=== PATIENT | male | born 1970 | race Caucasian/White ===

== ENCOUNTER 2017-06-03 09:18 | Inpatient (IN) | payer BC ==
[2017-06-03] MEDS ORDERED: NS 1000 ML 1,000 ML IV ONE (09:35)
--- NOTE | 2017-06-03 09:35 | DR.GENAD ---
HPI - PCP Primary Care Physician: heena - HPI Comment HPI Comment: PAIN STARTED AT 22:00PM LAST NIGHT. PATIENT HAVE NOT BEING TO KEEP FLUID DOWN SINCE. LOW GRADE FEVER IN ED. HAD BP YESTERDAY. SIMILAR ILLNESS LAST YEAR WAS DUE TO PANCREATITIS AND BANORMAL LFTS. - Complaint/Symptoms Chief Complaint Doctors Comments: ABDOMINAL PAIN WITH NAUSEA AND VOMITING TIMES SEVERAL HOURS. Chief Complaint:: pt stated he started having abd pain with nausea and vomiting. hx of pancreatitis - Nurses notes reviewed Nurses Notes Review: Yes - Source History Provided: Patient - Mode of Arrival Mode of Arrival: Ambulatory - Timing Onset of Chief Complaint: 06/02/17 Came on: Suddenly - Duration Duration: Constant Duration: Days - Severity Severity: Moderate PMH - PMH Past Medical History: Yes Past Medical History: Diabetes, Dyslipidemia, Hypertension Past Surgical History: Yes Surgical History: Cholecystectomy, Tonsillectomy - Family History History of Family Medical Conditions: Yes Family Medical History: Diabetes Mellitus, Cancer, [place], Coronary Artery Disease, Hypertension - Social History Does patient currently use any type of tobacco product: No Have you used tobacco products in the last 12 months: No Type of Tobacco Use: None Does any household member use tobacco: No Alcohol Use: None Do you use any recreational Drugs:: No Lives With: Family Lives Where: Home - infectious screening In the last 2 months have you had wt loss of >10#?: NO Have you had fever, night sweats or hemotysis?: No Have you traveled outside the country in the last 6 months?: No Isolation: Standard ROS - Review of Systems Constitutional: Fever, Weakness, Fatigue Eyes: No Symptoms Reported. negative: Eye Pain, Discharge ENTM: No Symptoms Reported Respiratoy: No Symptoms Reported Cardiovascular: No Symptoms Reported Gastrointestinal/Abdominal: Abdominal Pain, Nausea, Vomiting Genitourinary: No Symptoms Reported. negative: Dysuria, Frequency, Hematuria Neurological: No Symptoms Reported Musculoskeletal: No Symptoms Reported Integumentary: No Symptoms Reported Hematologic/Lymphatic: No Symptoms Reported Endocrine: No Symptoms Reported All Other Systems: Reviewed and Negative PE - Vital Signs Vitals: Temperature 99.9 F Pulse Rate 115 Respiratory Rate 18 Blood Pressure [Right Arm] 129/83 Blood Pressure [Left Arm] 123/76 Blood Pressure 127/85 O2 Sat by Pulse Oximetry 99 - General Limitations: No Limitations General Appearance: Alert - Head Head Exam: Normal Inspection - Eyes Eye exam: Normal Appearance - ENT ENT Exam: Normal External Ear Exam TM/Canal Exam: Bilateral Normal Nose Exam: Normal Nose Exam Mouth Exam: Normal Inspection Throat Exam: Normal Inspection - Neck Neck Exam: Normal Inspection - Chest Chest Inspection: Symmetric Chest Wall Rise - Respiratory Respiratory Exam: Normal Lung Sounds Bilat Respiratory Exam: Bilateral Rhonchi, Lower Rhonchi - Cardiovascular Cardiovascular Exam: Regular Rate, Tachycardia - Abdominal Exam Abdominal Exam: Normal Bowel Sounds, Soft, Tenderness Abdominal Tenderness: Diffuse, Moderate - Extremities Extremities Exam: Normal Inspection - Back Back Exam: Normal Inspection - Neurologic Neurological Exam: Alert, Oriented X3 - Psychiatric Psychiatric Exam: Normal Affect, Normal Mood - Skin Skin Exam: Normal Color [facility] - Additional Information Additional Information Obtained From: Family - Differential Diagnosis Differential Diagnosis: ABDOMINAL PAIN, N/V, ELEVATED GLUCOSE Course - Treatment Treatment: SEE ORDERS - Education/Counseling Education/Counseling: Patient, Family, Education Educated On: Diagnosis ROR - Labs Reviewed Laboratory Results Reviewed?: Yes Result Diagrams: 06/04/17 05:35 06/04/17 05:35 Laboratory: WBC 4.8 X10^3/uL (3.6-10.0) 06/03/17 09:31 RBC 5.26 X10^6/uL (4.7-6.0) 06/03/17 09:31 Hgb 14.4 g/dL (13.5-18.0) 06/03/17 09:31 Hct 42.5 % (42.0-54.0) 06/03/17 09:31 MCV 80.8 fL (80.0-100.0) 06/03/17 09:31 MCH 27.4 pg (27.0-34.0) 06/03/17 09:31 MCHC 33.9 g/dL (33.0-35.0) 06/03/17 09:31 RDW 14.8 % (11.6-16.5) 06/03/17 09:31 Plt Count 226 X10^3/uL (150.0-450.0) 06/03/17 09:31 MPV 8.8 fL (7.4-11.0) 06/03/17 09:31 Neut % 78.7 % (42.0-75.0) H 06/03/17 09:31 Lymph % 12.2 % (21.0-51.0) L 06/03/17 09:31 Carbon % 7.8 % (0.0-13.0) 06/03/17 09:31 Eos % 0.5 % (0.9-2.9) L 06/03/17 09:31 Baso % 0.8 % (0.2-1.0) 06/03/17 09:31 Neut # 3.8 x10^3/uL (2.2-4.8) 06/03/17 09:31 Lymph # 0.6 X10^3/uL (1.3-2.9) L 06/03/17 09:31 Carbon # 0.4 x10^3/uL (0.3-0.8) 06/03/17 09:31 Eos # 0.0 x10^3/uL (0.0-0.2) 06/03/17 09:31 Baso # 0.0 X10^3/uL (0.0-0.1) 06/03/17 09:31 Absolute Nucleated RBC 0.0 /100WBC 06/03/17 09:31 Sodium 138 mmol/L (136-145) 06/03/17 09:31 Corrected Sodium 142 mmol/L (136-145) 06/03/17 09:31 Potassium 4.2 mmol/L (3.5-5.1) 06/03/17 09:31 Chloride 99 mmol/L (98-107) 06/03/17 09:31 Carbon Dioxide 28.3 mmol/L (21-32) 06/03/17 09:31 BUN 18 mg/dL (7-18) 06/03/17 09:31 Creatinine 1.34 mg/dL (0.70-1.30) H 06/03/17 09:31 Est GFR (MDRD) Af Amer > 60 (>60) 06/03/17 09:31 Est GFR (MDRD) Non-Af > 60 (>60) 06/03/17 09:31 Glucose 286 mg/dL (65-99) H 06/03/17 09:31 Calcium 9.1 mg/dL (8.5-10.1) 06/03/17 09:31 Corrected Calcium TNP 06/03/17 09:31 Total Bilirubin 2.20 mg/dL (0.2-1.0) H 06/03/17 09:31 AST 2162 Units/L (15-37) H 06/03/17 09:31 ALT 2699 Units/L (12-78) H 06/03/17 09:31 Alkaline Phosphatase 203 Units/L (46-116) H 06/03/17 09:31 Creatine Kinase 51 Units/L (39-308) 06/03/17 09:31 CK-MB (CK-2) 1.0 ng/mL (0-4.0) 06/03/17 09: CK/CKMB % Calc 2.0 % (<4) 06/03/17 09: Troponin I < 0.02 ng/mL (0-1.5) 06/03/17 09:31 Total Protein 7.5 g/dL (6.4-8.2) 06/03/17 09:31 Albumin 3.9 g/dL (3.4-5.0) 06/03/17 09: Globulin 3.6 g/dL (2.5-4.5) 06/03/17 09:31 Albumin/Globulin Ratio 1.1 Ratio (1.1-2.1) 06/03/17 09:31 Amylase 14 Units/L (25-115) L 06/03/17 09:31 Lipase 155 Units/L (73-393) 06/03/17 09:31 Specimen Type Clean catch urine 06/03/17 09:40 Urine Color Yellow (YELLOW) 06/03/17 09:40 Urine Appearance Clear (CLEAR) 06/03/17 09:40 Urine pH 7.0 (5.0 - 8.0) 06/03/17 09:40 Ur Specific [place] 1.005 (1.000-1.030) 06/03/17 09:40 Urine Protein 1+ (NEGATIVE) 06/03/17 09:40 Urine Glucose (UA) 4+ (NEGATIVE) 06/03/17 09:40 Urine Ketones Negative (NEGATIVE) 06/03/17 09:40 Urine Occult Blood 1+ (NEGATIVE) 06/03/17 09:40 Urine Nitrite Negative (NEGATIVE) 06/03/17 09:40 Urine Bilirubin Negative (NEGATIVE) 06/03/17 09:40 Urine Urobilinogen 1+ (NORMAL) 06/03/17 09:40 Ur Leukocyte Esterase Negative (NEGATIVE) 06/03/17 09:40 Urine RBC 0-3 /HPF (NEGATIVE) 06/03/17 09:40 Urine WBC 0-1 /HPF (NEGATIVE) 06/03/17 09:40 Ur Squamous Epith Cells Negative /HPF (NEGATIVE) 06/03/17 09:40 Urine Bacteria Negative /HPF (NEGATIVE) 06/03/17 09:40 Ur Culture Indicated? No/not indicated 06/03/17 09:40 Acetone, Semi-Quant Neg (NEGATIVE) 06/03/17 09:31 - XRAY XRAY Interpreted by: Radiologist XRAY Findings: REPORT DISCUSS WITH PATIENT AND FAMILY. - EKG Rhythm: NSR (EKG NOTED) - Diagnosis Discharge Problem: Abdominal pain in male, Hyperglycemia, Partial small bowel obstruction Nausea & vomiting Qualifiers: Vomiting type: bilious vomiting Qualified Code(s): R11.14 - Bilious vomiting - Discharge Plan Disposition: ADMITTED INPATIENT Condition: Stable - Follow ups/Referrals - Instructions
[2017-06-03] MEDS ORDERED: NS 1000 ML 1,000 ML ONE ×2 (09:39→12:31)
[2017-06-03 09:46] LABS: BASOPHILS % (AUTO) 0.8 % (0.2-1.0); EOSINOPHILS % (AUTO) 0.5 % (0.9-2.9); HEMATOCRIT 42.5 % (42.0-54.0); HEMOGLOBIN 14.4 g/dL (13.5-18.0); LYMPHOCYTES # (AUTO) 0.6 X10^3/uL (1.3-2.9); LYMPHOCYTES % (AUTO) 12.2 % (21.0-51.0); MEAN CORPUSCULAR HEMOGLOBIN 27.4 pg (27.0-34.0); MEAN CORPUSCULAR HGB CONC 33.9 g/dL (33.0-35.0); MEAN CORPUSCULAR VOLUME 80.8 fL (80.0-100.0); MEAN PLATELET VOLUME 8.8 fL (7.4-11.0); MONOCYTES # (AUTO) 0.4 x10^3/uL (0.3-0.8); MONOCYTES % (AUTO) 7.8 % (0.0-13.0); NEUTROPHILS # (AUTO) 3.8 x10^3/uL (2.2-4.8); NEUTROPHILS % (AUTO) 78.7 % (42.0-75.0); PLATELET COUNT 226 X10^3/uL (150.0-450.0); RED BLOOD COUNT 5.26 X10^6/uL (4.7-6.0); RED CELL DISTRIBUTION WIDTH 14.8 % (11.6-16.5); WHITE BLOOD COUNT 4.8 X10^3/uL (3.6-10.0)
[2017-06-03] MEDS ORDERED: PEPCID 20 MG IV PREMIX* 20 MG/50 ML BAG IV ONE ×2 (09:49→09:50)
--- NOTE | 2017-06-03 09:59 | RAD ---
Examination: Portable AP chest History: Fever, abdominal pain Comparison reference 08/21/2016 Findings: Continued normal heart size with clear lungs and pleural spaces. Impression: No change; no acute disease Reported By:
[2017-06-03 10:00] LABS: ALBUMIN 3.9 g/dL (3.4-5.0); ALKALINE PHOSPHATASE 203 Units/L (46-116); AMYLASE 14 Units/L (25-115); BLOOD UREA NITROGEN 18 mg/dL (7-18); CALCIUM 9.1 mg/dL (8.5-10.1); CARBON DIOXIDE 28.3 mmol/L (21-32); CHLORIDE 99 mmol/L (98-107); COR NA(FOR HYPERGLY) 142 mmol/L (136-145); CREATININE 1.34 mg/dL (0.70-1.30); LIPASE 155 Units/L (73-393); SODIUM 138 mmol/L (136-145); TOTAL PROTEIN 7.5 g/dL (6.4-8.2); eGFR BLACK RACES > 60 (>60); eGFR NON BLACK RACES > 60 (>60)
[2017-06-03 10:01] LABS: BILIRUBIN,URINE NEGATIVE (NEGATIVE); BLOOD/HEMOGLOBIN,URINE 1+ (NEGATIVE); GLUCOSE, URINE 4+ (NEGATIVE); KETONES,URINE NEGATIVE (NEGATIVE); LEUKOCYTE ESTERASE ,URINE NEGATIVE (NEGATIVE); NITRITES,URINE NEGATIVE (NEGATIVE); PROTEIN,URINE 1+ (NEGATIVE); UROBILINOGEN,URINE 1+ (NORMAL)
[2017-06-03 10:06] LABS: SERUM ACETONE NEG (NEGATIVE)
[2017-06-03 10:09] LABS: CREATINE KINASE 51 Units/L (39-308); TROPONIN I < 0.02 ng/mL (0-1.5)
[2017-06-03 10:13] LABS: COLOR,URINE YELLOW (YELLOW)
[2017-06-03 10:14] LABS: APPEARANCE,URINE CLEAR (CLEAR); BACTERIA,URINE NEGATIVE /HPF (NEGATIVE); RBC,URINE 0-3 /HPF (NEGATIVE); SQUAMOUS EPITHELIAL CELL,UR NEGATIVE /HPF (NEGATIVE)
[2017-06-03 10:14] LABS: ALANINE AMINOTRANSFERASE 2699 Units/L (12-78); ASPARTATE AMINO TRANSFERASE 2162 Units/L (15-37)
--- NOTE | 2017-06-03 11:02 | CT ---
HISTORY: Abdominal pain, nausea, vomiting, diarrhea Study: CT abdomen pelvis without contrast Comparison: None Technique: Axial noncontrast images with coronal and sagittal reformats. Dose reduction procedures we re used with mA/kv adjusted for body size. The examination is limited due to the lack of oral and IV contrast. Findings: Examination of the lung bases demonstrate bilateral patchy infiltrates of a minimal degree, however, the infiltrates on the left have a nodular appearance measuring 8.3 and 11.6 mm. Follow-up of these a reas until complete resolution is recommended. Follow-up in 3-6 months is recommended to assess for c hange. Clinical correlation as to the presence or absence of parameters of infection is recommended. The liver, spleen, adrenal glands, pancreas are within normal limits to the limitations of an unenhan hank examination. The patient is status post cholecystectomy. The kidneys are unobstructed and without stones. No ureteral calculi are identified. The stomach is distended with fluid. Partial gastric out let obstruction could not be entirely excluded. There are no findings suggestive of diverticulitis or colitis. No enlarged intraperitoneal or retroperitoneal lymphadenopathy is identified. The appendix is not identified with absolute certainty. There are no secondary signs of appendicitis present. Exam ination of the pelvis demonstrated no evidence for pelvic masses, pelvic fluid, or pelvic lymphadenop athy. No bladder abnormality is identified. No lytic or blastic skeletal lesions are identified. IMPRESSION: Limited examination due to the lack of intravenous and oral contrast Stomach is moderately distended with fluid. This could be recently ingested contents however a partia l small bowel obstruction should be clinically excluded. Subtle soft peribronchial bibasilar lung infiltrates nodular on the left which should be followed car efully with CT Reported By:
[2017-06-03] MEDS ORDERED: ZOFRAN INJ 4 MG VIAL ONE (12:30)
[2017-06-03] MEDS ORDERED: DEMEROL INJ ONE (12:31)
[2017-06-03] MEDS ORDERED: DEMEROL INJ IVP ONE (12:38)
[2017-06-03] MEDS ORDERED: ZOFRAN INJ 4 MG VIAL IVP ONE (12:38)
[2017-06-03] MEDS: NS 1000 ML 1,000 ML IV SCH (13:05)
[2017-06-03 13:46] VITALS: BMI 26.2
[2017-06-03] MEDS: DILAUDID INJ IVP PRN ×2 (15:59→21:19)
[2017-06-03 16:28] LABS: CKMB % 1.9 % (<4); CREATINE KINASE 53 Units/L (39-308); TROPONIN I < 0.02 ng/mL (0-1.5)
[2017-06-03] MEDS: ZOFRAN INJ 4 MG VIAL IVP PRN (16:51)
[2017-06-03] MEDS: PHENERGAN INJ 25 MG IV PRN (21:18)
--- NOTE | 2017-06-03 21:33 | US ---
Limited abdominal ultrasound: Indication: Abdominal pain. Comparison: Abdomen and pelvis CT dated June 03, 2017. Technique: Multiple transverse and longitudinal real-time sonographic images with Doppler interrogati on of the liver and biliary tree were obtained. Findings: The imaged pancreas is normal, although the tail is obscured by bowel gas. The liver demons trates normal size, morphology, and echogenicity. No focal hepatic lesions are identified. Normal hep atopetal flow noted within the portal vein. Right kidney is unremarkable. Gallbladder is not present, consistent with cholecystectomy. There is no biliary dilation. Measurements: 1. Liver: 15.0 cm 2. Common duct: 4 mm 3. Right kidney: 12.8 cm Impression: Negative abdominal ultrasound status post cholecystectomy. Reported By:
[2017-06-03 23:27] LABS: CKMB % 2.1 % (<4); CREATINE KINASE 57 Units/L (39-308); CREATINE KINASE MB 1.2 ng/mL (0-4.0); TROPONIN I < 0.02 ng/mL (0-1.5)
[2017-06-04] MEDS: NS 1000 ML 1,000 ML IV SCH ×2 (04:00→18:37)
[2017-06-04] MEDS: PHENERGAN INJ 25 MG IV PRN ×2 (04:14→17:47)
[2017-06-04] MEDS: DILAUDID INJ IVP PRN ×3 (04:14→22:00)
[2017-06-04 06:15] LABS: BASOPHILS # (AUTO) 0.1 X10^3/uL (0.0-0.1); BASOPHILS % (AUTO) 0.8 % (0.2-1.0); EOSINOPHILS # (AUTO) 0.1 x10^3/uL (0.0-0.2); EOSINOPHILS % (AUTO) 1.3 % (0.9-2.9); HEMATOCRIT 40.9 % (42.0-54.0); HEMOGLOBIN 13.6 g/dL (13.5-18.0); LYMPHOCYTES % (AUTO) 13.4 % (21.0-51.0); MEAN CORPUSCULAR HEMOGLOBIN 27.5 pg (27.0-34.0); MEAN CORPUSCULAR HGB CONC 33.4 g/dL (33.0-35.0); MEAN CORPUSCULAR VOLUME 82.3 fL (80.0-100.0); MONOCYTES # (AUTO) 0.7 x10^3/uL (0.3-0.8); NEUTROPHILS # (AUTO) 5.7 x10^3/uL (2.2-4.8); NEUTROPHILS % (AUTO) 75.5 % (42.0-75.0); PLATELET COUNT 207 X10^3/uL (150.0-450.0); RED BLOOD COUNT 4.96 X10^6/uL (4.7-6.0); RED CELL DISTRIBUTION WIDTH 15.3 % (11.6-16.5); WHITE BLOOD COUNT 7.5 X10^3/uL (3.6-10.0)
[2017-06-04 07:03] LABS: ALBUMIN 3.6 g/dL (3.4-5.0); ALKALINE PHOSPHATASE 242 Units/L (46-116); ASPARTATE AMINO TRANSFERASE 652 Units/L (15-37); BLOOD UREA NITROGEN 14 mg/dL (7-18); CALCIUM 8.6 mg/dL (8.5-10.1); CARBON DIOXIDE 26.4 mmol/L (21-32); CHLORIDE 105 mmol/L (98-107); CHOL/HDL RATIO 5.9 (0.0-5.0); CHOLESTEROL 159 mg/dL (0-200); COR NA(FOR HYPERGLY) 141 mmol/L (136-145); CREATININE 0.84 mg/dL (0.70-1.30); HDL CHOLESTEROL 27 mg/dL (40-60); MAGNESIUM 2.1 mg/dL (1.7-2.9); SODIUM 140 mmol/L (136-145); TOTAL PROTEIN 7.1 g/dL (6.4-8.2); TRIGLYCERIDES 206 mg/dL (0-150); eGFR BLACK RACES > 60 (>60); eGFR NON BLACK RACES > 60 (>60)
[2017-06-04 07:08] LABS: ALANINE AMINOTRANSFERASE 1833 Units/L (12-78)
[2017-06-04] MEDS: PROTONIX TAB 40 MG PO SCH (11:08)
[2017-06-04] MEDS: ACTOS PO SCH (11:08)
[2017-06-04] MEDS: ZESTRIL TAB 10 MG PO SCH ×2 (11:08→23:17)
[2017-06-04] MEDS: GLUCOPHAGE XR PO SCH ×2 (11:08→23:17)
[2017-06-04] MEDS: CANAGLIFLOZIN 300 MG PO SCH (11:08)
[2017-06-04] MEDS ORDERED: EFFEXOR TAB 75 MG (BID DOSING) PO SCH (21:00)
[2017-06-04] MEDS ORDERED: MIRALAX POWDER (1 DOSE 17GM) PO SCH (21:00)
[2017-06-04] MEDS: ZOFRAN INJ 4 MG VIAL IVP PRN (21:50)
[2017-06-05] MEDS: CANAGLIFLOZIN 300 MG PO SCH (09:07)
[2017-06-05] MEDS: GLUCOPHAGE XR PO SCH (09:07)
[2017-06-05] MEDS: ACTOS PO SCH (09:07)
[2017-06-05] MEDS: PROTONIX TAB 40 MG PO SCH (09:07)
[2017-06-05] MEDS: ZESTRIL TAB 10 MG PO SCH (09:07)
[2017-06-05 10:38] VITALS: BP 121/76
[2017-06-07 20:10] LABS: HEPATITIS A ANTIBODY IGM Negative (Negative)
[2017-06-10 06:58] LABS: HEPATITIS B CORE IGM Negative (Negative); HEPATITIS B SURFACE ANTIGEN Negative (Negative)
== END 2017-06-05 11:35 | disposition home or self-care (01) | DRG 392 ==
LOC: ER 09:25 → MED/SURG 12:26
PROVIDERS: ADMIT Obstetrics & Gynecology Obstetrics; ATTEND Obstetrics & Gynecology Obstetrics
DX: R10.84 Generalized abdominal pain (principal); E11.65 Type 2 diabetes mellitus with hyperglycemia; R11.14 Bilious vomiting; E78.2 Mixed hyperlipidemia; I10 Essential (primary) hypertension; K59.09 Other constipation; R94.5 Abnormal results of liver function studies; Z87.898 Personal history of other specified conditions
CPT/HCPCS: 36415; 71045; 74176; 76705; 80053; 80061; 80074; 81001; 82009; 82150; 82550; 82553; 83690; 83735; 84484; 85025; 93005; 93010; 94760; 96365; 96374; 96375; 99284; A4222; S0028; J1170; J2175; J2405; J2550

== ENCOUNTER → 2017-06-17 | Outpatient (CLI) | payer BC ==
[2017-06-05 10:38] VITALS: BP 121/76
[~2017-06-17] MED LIST: NS 100 ML IV 100 ML IV ONE
[2017-06-17 09:43] LABS: ALANINE AMINOTRANSFERASE 49 Units/L (12-78); ALBUMIN 3.7 g/dL (3.4-5.0); ALKALINE PHOSPHATASE 109 Units/L (46-116); ASPARTATE AMINO TRANSFERASE 15 Units/L (15-37); BLOOD UREA NITROGEN 24 mg/dL (7-18); CALCIUM 8.8 mg/dL (8.5-10.1); CARBON DIOXIDE 27.9 mmol/L (21-32); CHLORIDE 100 mmol/L (98-107); COR NA(FOR HYPERGLY) 137 mmol/L (136-145); CREATININE 1.13 mg/dL (0.70-1.30); SODIUM 134 mmol/L (136-145); TOTAL PROTEIN 7.2 g/dL (6.4-8.2); eGFR BLACK RACES > 60 (>60); eGFR NON BLACK RACES > 60 (>60)
--- NOTE | 2017-06-17 10:11 | CT ---
HISTORY: Shortness of breath Study: CT of the chest Comparison: None Technique: Serial axial images were obtained from the thoracic inlet to the upper abdomen with infusi on of IV contrast. Coronal sagittal reformatted images were also submitted. Dose reduction techniques including automated exposure control (AEC) and adjustment of mA and kVwere utilized. Findings: Scattered subcentimeter lymph nodes are noted within the mediastinum. No significant pericardial effu ortiz is identified. Allowing for streak artifact, the thoracic aorta is grossly unremarkable without evidence of aneurysmal dilatation. Patchy ground-glass opacities are seen primarily within both lower lobes suggesting infiltrate/pneumonia. Recommend clinical correlation and continued follow-up until resolution to exclude additional underlying processes. No CT evidence of pneumothorax or pleural effu ortiz is identified. Surgical clips are noted within the gallbladder fossa. IMPRESSION: Patchy bibasilar ground-glass opacities as discussed above. Reported By:
== END ==
LOC: LAB 09:09
PROVIDERS: ATTEND Nurse Practitioner Family
DX: R06.02 Shortness of breath (principal); R91.8 Other nonspecific abnormal finding of lung field; R93.8 Abnormal findings on diagnostic imaging of other specified body structures
CPT/HCPCS: 36415; 71260; 80053; A4222